=== PATIENT | female | born 1995 | race Caucasian/White ===

== ENCOUNTER 2016-07-12 12:37 | Inpatient (IN) ==
--- NOTE | 2016-07-12 12:42 | Emergency Department Note ---
Disposition Clinical Impression: Suicidal ideation Disposition: Transfer Psychiatric Hosp Condition: Good Referrals: NO,PCP [Primary Care Provider] - General Adult HPI - General Stated complaint: SI Time Seen by Provider: 07/12/16 12:40 - Related Data Allergies Allergy/AdvReac Type Severity Reaction Status Date / Time No Known Allergies Allergy Verified 07/12/16 12:45 Course Vital Signs Temperature 97.6 F 07/12/16 12:39 Pulse Rate 120 07/12/16 12:39 Respiratory Rate 18 07/12/16 12:39 Blood Pressure 160/110 07/12/16 12:39 O2 Sat by Pulse Oximetry 100 07/12/16 12:39 Temperature 98.4 F 07/12/16 17:41 Pulse Rate 83 07/12/16 19:37 Respiratory Rate 18 07/12/16 20:00 Blood Pressure 117/86 07/12/16 20:00 O2 Sat by Pulse Oximetry 98 07/12/16 19:37 Oxygen Delivery Oxygen Delivery Room Air Medical Decision Making - Lab Data Result diagrams: 07/12/16 12:59 07/12/16 12:59 Lab Results 07/12/16 07/12/16 07/12/16 Range/Units 12:59 12:59 13:10 WBC 10.1 (4.3-11.1) K/mcL RBC 4.47 (3.82-4.97) M/mcL Hgb 13.5 (11.5-15.4) g/dL Hct 40.0 (35.3-44.9) % MCV 89.5 (83.0-100.0) fL MCH 30.2 (28.0-33.3) pg MCHC 33.8 (31.6-35.5) g/dL RDW 12.3 (11.5-14.5) % Plt Count 420 H (140-400) K/mcL MPV 9.1 L (9.4-12.4) fL Immature Gran % 0.3 (0-4) % Seg Neutrophils % 62.9 % Lymphocytes % 29.7 % Monocytes % 5.5 % Eosinophils % 1.2 % Basophils % 0.4 % Neutrophils # 6.4 (1.6-8.9) K/mcL Lymphocytes # 3.0 (0.6-4.6) K/mcL Monocytes # 0.6 (0.0-1.3) K/mcL Eosinophils # 0.1 (0.0-0.6) K/mcL Basophils # 0.0 (0.0-0.2) K/mcL Sodium 137 (136-145) mEq/L Potassium 3.9 (3.5-4.5) mEq/L Chloride 107 (98-109) mEq/L Carbon Dioxide 24 (19-29) mEq/L BUN 10 (7-20) mg/dL Creatinine 0.92 (0.57-1.11) mg/dL Est GFR ( Amer) > 60 (> 60) Est GFR (Non-Af Amer) > 60 (> 60) BUN/Creatinine Ratio 11 (6-26) Glucose 98 (70-99) mg/dL Calculated Osmolality 283 (280-300) Calcium 9.9 (8.6-10.8) mg/dL Total Bilirubin 0.5 (0.2-1.2) mg/dL AST 14 (5-34) Units/L ALT 25 (0-55) Units/L Alkaline Phosphatase 66 (38-126) Units/L Serum Total Protein 7.7 (6.0-8.3) g/dL Albumin 4.2 (3.5-5.0) g/dL Globulin 3.5 (2.4-3.5) g/dL Albumin/Globulin Ratio 1.2 (1.1-2.2) TSH 1.769 (0.350-4.840) mcIU/mL Urine Test Negative (Negative) Salicylates < 5.0 L (15-30) mg/dL Urine Opiates Screen (Pzyjgo=462) ng/mL Acetaminophen < 1.0 L (10-30) mcg/mL Ur Barbiturates Screen (Gnwlqg=510) ng/mL Ur Phencyclidine Scrn (Cutoff=25) ng/mL Ur Amphetamines Screen (Fwqobo=0250) ng/mL U Benzodiazepines Scrn (Oxovlf=297) ng/mL Urine Cocaine Screen (Cutoff= 300) ng/mL U Marijuana (THC) Screen (Cutoff = 50) ng/mL Ethyl Alcohol < 10 (0-10) mg/dL 07/12/16 Range/Units 13:10 WBC (4.3-11.1) K/mcL RBC (3.82-4.97) M/mcL Hgb (11.5-15.4) g/dL Hct (35.3-44.9) % MCV (83.0-100.0) fL MCH (28.0-33.3) pg MCHC (31.6-35.5) g/dL RDW (11.5-14.5) % Plt Count (140-400) K/mcL MPV (9.4-12.4) fL Immature Gran % (0-4) % Seg Neutrophils % % Lymphocytes % % Monocytes % % Eosinophils % % Basophils % % Neutrophils # (1.6-8.9) K/mcL Lymphocytes # (0.6-4.6) K/mcL Monocytes # (0.0-1.3) K/mcL Eosinophils # (0.0-0.6) K/mcL Basophils # (0.0-0.2) K/mcL Sodium (136-145) mEq/L Potassium (3.5-4.5) mEq/L Chloride (98-109) mEq/L Carbon Dioxide (19-29) mEq/L BUN (7-20) mg/dL Creatinine (0.57-1.11) mg/dL Est GFR ( Amer) (> 60) Est GFR (Non-Af Amer) (> 60) BUN/Creatinine Ratio (6-26) Glucose (70-99) mg/dL Calculated Osmolality (280-300) Calcium (8.6-10.8) mg/dL Total Bilirubin (0.2-1.2) mg/dL AST (5-34) Units/L ALT (0-55) Units/L Alkaline Phosphatase (38-126) Units/L Serum Total Protein (6.0-8.3) g/dL Albumin (3.5-5.0) g/dL Globulin (2.4-3.5) g/dL Albumin/Globulin Ratio (1.1-2.2) TSH (0.350-4.840) mcIU/mL Urine Test (Negative) Salicylates (15-30) mg/dL Urine Opiates Screen Negative (Plyilc=453) ng/mL Acetaminophen (10-30) mcg/mL Ur Barbiturates Screen Negative (Ffeavc=713) ng/mL Ur Phencyclidine Scrn Negative (Cutoff=25) ng/mL Ur Amphetamines Screen Negative (Aqylfq=9777) ng/mL U Benzodiazepines Scrn Negative (Ccbnyz=051) ng/mL Urine Cocaine Screen Negative (Cutoff= 300) ng/mL U Marijuana (THC) Screen Positive H (Cutoff = 50) ng/mL Ethyl Alcohol (0-10) mg/dL Attestation Statement - Attestation Attestation: I examined this patient and my medical decision-making was reviewed with the HIGH SCHO[employer] SPECIAL EDUCATION TEACHER/PA/Advanced Practice Nurse/Resident Physician. I agree with the documented findings, disposition and treatment plan as described except to the extent set forth below. Face skee-qo-jgua time provided Patient appears in no acute distress on exam. She complains of suicidal ideation. We will attempt to clear her medically for behavioral evaluation 20:04: 1A accepts admission
--- NOTE | 2016-07-12 12:52 | Emergency Department Note ---
Disposition Clinical Impression: Suicidal ideation Disposition: Transfer Psychiatric Hosp Condition: Good Referrals: NO,PCP [Primary Care Provider] - Time of Disposition: 18:28 Psych HPI - General Chief Complaint: ED Psychiatric Symptoms Stated Complaint: SI Time Seen by Provider: 07/12/16 12:40 Source: patient Mode of arrival: ambulatory Limitations: no limitations Nursing Notes Reviewed: Yes Vital Signs Reviewed: Yes - History of Present Illness HPI Narrative: 20 year old female with HX of depression and recently ran out of her medications has been experiencing increased suidical thoughts. She states that yesterday she cut herself with a knife and today while she was at work she was cutting tomatoes and thought about cutting herself again. Patient states that she called her friend and was brought over to ED for SI evaluations. She states no previous admissions for pysch reasons and has not had an attempt although has specific plans. - Related Data Allergies Allergy/AdvReac Type Severity Reaction Status Date / Time No Known Allergies Allergy Verified 07/12/16 12:45 Constitutional: Denies: fever, chills, weakness, weight change Cardiovascular: Denies: chest pain, palpitations, dyspnea on exertion, edema, syncope Respiratory: Denies: cough, dyspnea, wheezes, hemoptysis Gastrointestinal: Denies: abdominal pain, nausea, vomiting, diarrhea, constipation Musculoskeletal: Denies: back pain, neck pain, arthralgia, myalgia Psychiatric: Reports: depression, suicidal thoughts. Denies: anxiety, homicidal thoughts, auditory hallucinations, visual hallucinations Past Medical History - Past Medical History Medical history: Reports: asthma - Social History Smoking Status: Current every day smoker Smokeless Tobacco Status: No Alcohol use: Reports: occasionally Drug use: Reports: marijuana Physical Exam - General Limitations: no limitations General appearance: alert - Head Head exam: atraumatic, normocephalic, normal inspection - Eye Eye exam: Present: normal appearance, PERRL, EOMI - Expanded Eye Exam Pupils: Left: reactive - ENT ENT exam: normal exam, normal oropharynx, mucous membranes moist - Expanded ENT Exam External ear exam: Present: normal external inspection Mouth exam: Present: normal external inspection Teeth exam: Present: normal inspection Throat exam: Present: normal inspection - Neck Neck exam: Present: normal inspection, full ROM, trachea midline - Chest Chest inspection: Present: normal inspection, symmetric chest wall rise - Respiratory Respiratory exam: Present: normal lung sounds bilaterally - Cardiovascular Cardiovascular exam: Present: regular rate, normal rhythm, normal heart sounds - Abdominal Exam Abdominal exam: Present: soft, Non-Tender. Absent: tenderness, distention, guarding, rebound, rigidity - Extremities Exam Extremities exam: Present: normal inspection, full ROM. Absent: tenderness, pedal edema - Expanded Upper Extremity Exam Shoulder exam: Present: normal inspection, full ROM Arm exam: Present: normal inspection, full ROM Elbow exam: Present: normal inspection, full ROM Forearm/Wrist exam: Present: normal inspection, full ROM Hand exam: Present: normal inspection, full ROM Vascular exam: Normal: capillary refill, radial pulse - Expanded Lower Extremity Exam Hip/Pelvis exam: Present: normal inspection, full ROM Upper leg exam: Present: normal inspection, full ROM Knee exam: Present: normal inspection, full ROM Lower leg exam: Present: normal inspection, full ROM Ankle exam: Present: normal inspection, full ROM Foot/toe exam: Present: normal inspection, full ROM Neurovascular/Tendon exam: Absent: motor deficit, sensory deficit, tendon deficit - Back Exam Back exam: Present: normal inspection, full ROM. Absent: tenderness - Neurological Exam Neurological exam: Present: alert, oriented X3 - Expanded Neurological Exam Patient oriented to: Present: person, place, time Coma Scale Eye Opening: Spontaneous Coma Scale Motor Response: Obeys Commands Coma Scale Verbal Response: Oriented Coma Scale Total: 15 - Psychiatric Psychiatric exam: Present: depressed, flat affect, suicidal ideation - Skin Skin exam: Present: warm, dry, intact, normal color Course Course Narrative: we will do a medical clearance and consult 1A - Reevaluation(s) Reevaluation #1: patinet is medically cleared. 1A consulted. Time: 13:34 Reevaluation #2: 1A accepted patinet and willl place outside of our facility. Time: 18:27 Vital Signs Temperature 97.6 F 07/12/16 12:39 Pulse Rate 120 07/12/16 12:39 Respiratory Rate 18 07/12/16 12:39 Blood Pressure 160/110 07/12/16 12:39 O2 Sat by Pulse Oximetry 100 07/12/16 12:39 Temperature 98.4 F 07/12/16 17:41 Pulse Rate 78 07/12/16 17:41 Respiratory Rate 16 07/12/16 17:41 Blood Pressure 105/67 07/12/16 17:41 O2 Sat by Pulse Oximetry 97 07/12/16 17:41 Psych - Lab Data Result diagrams: 07/12/16 12:59 07/12/16 12:59 Lab Results 07/12/16 07/12/16 07/12/16 Range/Units 12:59 12:59 13:10 WBC 10.1 (4.3-11.1) K/mcL RBC 4.47 (3.82-4.97) M/mcL Hgb 13.5 (11.5-15.4) g/dL Hct 40.0 (35.3-44.9) % MCV 89.5 (83.0-100.0) fL MCH 30.2 (28.0-33.3) pg MCHC 33.8 (31.6-35.5) g/dL RDW 12.3 (11.5-14.5) % Plt Count 420 H (140-400) K/mcL MPV 9.1 L (9.4-12.4) fL Immature Gran % 0.3 (0-4) % Seg Neutrophils % 62.9 % Lymphocytes % 29.7 % Monocytes % 5.5 % Eosinophils % 1.2 % Basophils % 0.4 % Neutrophils # 6.4 (1.6-8.9) K/mcL Lymphocytes # 3.0 (0.6-4.6) K/mcL Monocytes # 0.6 (0.0-1.3) K/mcL Eosinophils # 0.1 (0.0-0.6) K/mcL Basophils # 0.0 (0.0-0.2) K/mcL Sodium 137 (136-145) mEq/L Potassium 3.9 (3.5-4.5) mEq/L Chloride 107 (98-109) mEq/L Carbon Dioxide 24 (19-29) mEq/L BUN 10 (7-20) mg/dL Creatinine 0.92 (0.57-1.11) mg/dL Est GFR ( Amer) > 60 (> 60) Est GFR (Non-Af Amer) > 60 (> 60) BUN/Creatinine Ratio 11 (6-26) Glucose 98 (70-99) mg/dL Calculated Osmolality 283 (280-300) Calcium 9.9 (8.6-10.8) mg/dL Total Bilirubin 0.5 (0.2-1.2) mg/dL AST 14 (5-34) Units/L ALT 25 (0-55) Units/L Alkaline Phosphatase 66 (38-126) Units/L Serum Total Protein 7.7 (6.0-8.3) g/dL Albumin 4.2 (3.5-5.0) g/dL Globulin 3.5 (2.4-3.5) g/dL Albumin/Globulin Ratio 1.2 (1.1-2.2) TSH 1.769 (0.350-4.840) mcIU/mL Urine Test Negative (Negative) Salicylates < 5.0 L (15-30) mg/dL Urine Opiates Screen (Pdcmsq=982) ng/mL Acetaminophen < 1.0 L (10-30) mcg/mL Ur Barbiturates Screen (Qffqap=408) ng/mL Ur Phencyclidine Scrn (Cutoff=25) ng/mL Ur Amphetamines Screen (Zaipce=1212) ng/mL U Benzodiazepines Scrn (Ylotrq=970) ng/mL Urine Cocaine Screen (Cutoff= 300) ng/mL U Marijuana (THC) Screen (Cutoff = 50) ng/mL Ethyl Alcohol < 10 (0-10) mg/dL 07/12/16 Range/Units 13:10 WBC (4.3-11.1) K/mcL RBC (3.82-4.97) M/mcL Hgb (11.5-15.4) g/dL Hct (35.3-44.9) % MCV (83.0-100.0) fL MCH (28.0-33.3) pg MCHC (31.6-35.5) g/dL RDW (11.5-14.5) % Plt Count (140-400) K/mcL MPV (9.4-12.4) fL Immature Gran % (0-4) % Seg Neutrophils % % Lymphocytes % % Monocytes % % Eosinophils % % Basophils % % Neutrophils # (1.6-8.9) K/mcL Lymphocytes # (0.6-4.6) K/mcL Monocytes # (0.0-1.3) K/mcL Eosinophils # (0.0-0.6) K/mcL Basophils # (0.0-0.2) K/mcL Sodium (136-145) mEq/L Potassium (3.5-4.5) mEq/L Chloride (98-109) mEq/L Carbon Dioxide (19-29) mEq/L BUN (7-20) mg/dL Creatinine (0.57-1.11) mg/dL Est GFR ( Amer) (> 60) Est GFR (Non-Af Amer) (> 60) BUN/Creatinine Ratio (6-26) Glucose (70-99) mg/dL Calculated Osmolality (280-300) Calcium (8.6-10.8) mg/dL Total Bilirubin (0.2-1.2) mg/dL AST (5-34) Units/L ALT (0-55) Units/L Alkaline Phosphatase (38-126) Units/L Serum Total Protein (6.0-8.3) g/dL Albumin (3.5-5.0) g/dL Globulin (2.4-3.5) g/dL Albumin/Globulin Ratio (1.1-2.2) TSH (0.350-4.840) mcIU/mL Urine Test (Negative) Salicylates (15-30) mg/dL Urine Opiates Screen Negative (Kyehdr=959) ng/mL Acetaminophen (10-30) mcg/mL Ur Barbiturates Screen Negative (Uksdyt=178) ng/mL Ur Phencyclidine Scrn Negative (Cutoff=25) ng/mL Ur Amphetamines Screen Negative (Xlcsur=8932) ng/mL U Benzodiazepines Scrn Negative (Kocyqb=845) ng/mL Urine Cocaine Screen Negative (Cutoff= 300) ng/mL U Marijuana (THC) Screen Positive H (Cutoff = 50) ng/mL Ethyl Alcohol (0-10) mg/dL Psychiatric Medical Clearance - Medical Clearance Checklist Medical History: No Social History Section defined Current Vitals: Last Vital Signs Temp 98.4 F 07/12/16 17:41 Pulse 78 07/12/16 17:41 Resp 16 07/12/16 17:41 BP 105/67 07/12/16 17:41 Pulse Ox 97 07/12/16 17:41 Psychiatric Lab Panel: Drug Levels and Toxicity 07/12/16 07/12/16 12:59 13:10 Urine Opiates Screen Negative Acetaminophen < 1.0 L Ur Barbiturates Screen Negative Ur Phencyclidine Scrn Negative Ur Amphetamines Screen Negative U Benzodiazepines Scrn Negative Urine Cocaine Screen Negative U Marijuana (THC) Screen Positive H Ethyl Alcohol < 10 Abnormal Labs: Abnormal lab results Plt Count 420 K/mcL (140-400) H 07/12/16 12:59 MPV 9.1 fL (9.4-12.4) L 07/12/16 12:59 Salicylates < 5.0 mg/dL (15-30) L 07/12/16 12:59 Acetaminophen < 1.0 mcg/mL (10-30) L 07/12/16 12:59 U Marijuana (THC) Screen Positive ng/mL (Cutoff = 50) H 07/12/16 13:10 Statement of Medical Clearance: I have evaluated the patient, reviewed diagnostic information, and certify that the patient's medical condition is sufficiently stable that transfer to the psychiatric unit does not pose a significant risk of deterioration.
[2016-07-12 13:06] LABS: Basophils % 0.4 %; Eosinophils # 0.1 K/mcL (0.0-0.6); Eosinophils % 1.2 %; Hemoglobin 13.5 g/dL (11.5-15.4); Immature Granulocytes % 0.3 % (0-4); Lymphocytes % 29.7 %; Mean Corpuscular HGB Conc 33.8 g/dL (31.6-35.5); Mean Corpuscular Hemoglobin 30.2 pg (28.0-33.3); Mean Corpuscular Volume 89.5 fL (83.0-100.0); Mean Platelet Volume 9.1 fL (9.4-12.4); Monocytes # 0.6 K/mcL (0.0-1.3); Monocytes % 5.5 %; Neutrophils # 6.4 K/mcL (1.6-8.9); Platelet Count 420 K/mcL (140-400); Red Blood Count 4.47 M/mcL (3.82-4.97); Red Cell Distribution Width 12.3 % (11.5-14.5); Segmented Neutrophils % 62.9 %
[2016-07-12 13:20] LABS: Alanine Aminotransferase 25 Units/L (0-55); Albumin 4.2 g/dL (3.5-5.0); Albumin/Globulin Ratio 1.2 (1.1-2.2); Alkaline Phosphatase 66 Units/L (38-126); Aspartate Amino Transferase 14 Units/L (5-34); BUN/Creatinine Ratio 11 (6-26); Bilirubin,Total 0.5 mg/dL (0.2-1.2); Blood Urea Nitrogen 10 mg/dL (7-20); Calcium 9.9 mg/dL (8.6-10.8); Carbon Dioxide 24 mEq/L (19-29); Chloride 107 mEq/L (98-109); Globulin 3.5 g/dL (2.4-3.5); Glucose 98 mg/dL (70-99); Osmolality,Calculated 283 (280-300); Potassium 3.9 mEq/L (3.5-4.5); Sodium 137 mEq/L (136-145); Total Protein 7.7 g/dL (6.0-8.3); eGFR For African Americans > 60 (> 60); eGFR For Non-African Americans > 60 (> 60)
[2016-07-12 13:24] LABS: Acetaminophen < 1.0 mcg/mL (10-30); Ethanol < 10 mg/dL (0-10); Salicylate < 5.0 mg/dL (15-30)
[2016-07-12 13:27] LABS: Amphetamine Screen,Urine Negative ng/mL (Cutoff=1000); Barbiturate Screen,Urine Negative ng/mL (Cutoff=200); Benzodiazepines Screen,Urine Negative ng/mL (Cutoff=200); Cannabinoid Screen,Urine Positive ng/mL (Cutoff = 50); Cocaine Screen,Urine Negative ng/mL (Cutoff= 300); Opiate Screen,Urine Negative ng/mL (Cutoff=300); Phencyclidine Screen,Urine Negative ng/mL (Cutoff=25)
[2016-07-12 13:41] LABS: Thyroid Stimulating Hormone 1.769 mcIU/mL (0.350-4.840)
[2016-07-12] MEDS ORDERED: Ibuprofen 800 MG TABLET PO ONE (17:38)
[2016-07-12] MEDS ORDERED: Mag Hydrox/Al Hydrox/Simeth 30 ML UDC PO PRN (22:16)
[2016-07-12] MEDS ORDERED: *HR* LORazepam 2 MG/ML VIAL IM PRN (22:16)
[2016-07-12] MEDS ORDERED: *HR* LORazepam 1 MG TABLET PO PRN (22:16)
[2016-07-12] MEDS ORDERED: MOM Conc 10 ML UD.LIQ PO PRN (22:16)
[2016-07-12] MEDS ORDERED: Haloperidol Lactate 5 MG/ML VIAL IM PRN (22:16)
[2016-07-12] MEDS ORDERED: hydrOXYzine pamoate 25 MG CAPSULE PO PRN (22:16)
[2016-07-12] MEDS: Nicotine 2 MG GUM BC PRN (23:10)
[2016-07-12] MEDS: traZODone 50 MG TABLET PO PRN (23:10)
--- NOTE | 2016-07-13 10:11 | Psychiatry History & Physical ---
Date of Encounter: 07/13/16 Time of Encounter: 10:08 History of Present Illness Patient Stated Chief Complaint: Suicidal Medicare Admission Attestation: For traditional Medicare patients the provided hospital inpatient services are reasonable and necessary and in the case of services not specified as inpatient -only under 42 CFR 419.22 (n), that they are appropriately provided as inpatient services in accordance 42 CFR 412.3. For Critical Access Hospital the patient may reasonably be expected to be discharged or transferred to a hospital within 96 hours after admission to the Critical Access Hospital. Admitted From: Emergency Dept History of Present Illness: Ms. Awan is a 20 year old female admitted from the emergency department where she presented with suicidal ideation and attempts by cutting her wrist. Patient had a breakup with her boyfriend and felt hopeless and helpless and suicidal and on the advice of friends she came to the hospital. Patient had no previous psychiatric hospitalization. She was given antidepressant several months ago by a family doctor where she was having some family conflicts. Patient moved to [place] from [place] to live with her mother and she works part-time at a local restaurant. She had high school diploma. She smokes one pack cigarettes a day, several cans of Mountain Dew and smoke marijuana daily. She decided not to drink alcohol for the past several weeks and she believes her mother is alcohol dependent. Patient reports poor sleep, and anxiety and suicidal thoughts and crying episodes. Past Med Surg Social Fam HX - Past Medical History Medical history: asthma - Past Psychiatric History Psychiatric history: Reports: no psych history Family psychiatric history: Unknown Family History of Suicide: Unknown - Social History Smoking Status: Current every day smoker Smokeless Tobacco Status: No Alcohol use: occasionally Drug use: marijuana - Family History Mother Hx Family Psychosocial Disorders: Yes (depression) Father Hx Family Psychosocial Disorders: Yes (biolar depression) Medications & Allergies Acetaminophen/Pyrilam/Pamabrom [Pms Multi Symptom Caplet] 1 tab PO Q12H PRN [History] Albuterol Sulfate [Proair Hfa] 2 puff IH Q4H PRN 07/13/16 [History] Etonogestrel [Nexplanon] 68 mg SQ AD 07/13/16 [History] Ibuprofen [Motrin] 600 mg PO Q6HR PRN 07/13/16 [History] Allergies nicotine [From Nicoderm CQ] Allergy (Verified 07/13/16 08:01) Hives the patch breaks her out Review of Systems Psychiatric: Reports: depression, abnormal sleep pattern, suicidal ideation, hopelessness Mental Status Exam Patient orientation: Yes Person, Yes Time, Yes Place Level of alertness: Alert Patient appearance: Appropriate, Well Groomed, Obese Behavior: calm, cooperative Psychomotor activity: Normal Eye contact: Maintains Eye Contact Mood description: Depressed, Anxious Affect description: congruent with mood, constricted Speech pattern: Normal rate, Normal rhythm, Normal tone Speech volume: Normal Thought process: Linear, Goal Oriented Thought content: Yes Suicidal ideation, No Homicidal ideation, No Overt delusions Perceptual disturbances: No Auditory hallucinations, No Visual hallucinations Attention span: Capable of Focused Attention Memory description: Grossly Intact Patient reliability: Reliable Historian Intelligence estimate: Average Judgment: Limited Insight: Partial Results - Vital Signs Vital signs: Temp Pulse Resp BP Pulse Ox 97.6 F 94 16 119/77 98 07/13/16 09:00 07/13/16 09:00 07/13/16 09:00 07/13/16 09:00 07/12/16 19:37 - Labs Labs: Laboratory Last Values WBC 10.1 K/mcL (4.3-11.1) 07/12/16 12:59 RBC 4.47 M/mcL (3.82-4.97) 07/12/16 12:59 Hgb 13.5 g/dL (11.5-15.4) 07/12/16 12:59 Hct 40.0 % (35.3-44.9) 07/12/16 12:59 MCV 89.5 fL (83.0-100.0) 07/12/16 12:59 MCH 30.2 pg (28.0-33.3) 07/12/16 12:59 MCHC 33.8 g/dL (31.6-35.5) 07/12/16 12:59 RDW 12.3 % (11.5-14.5) 07/12/16 12:59 Plt Count 420 K/mcL (140-400) H 07/12/16 12:59 MPV 9.1 fL (9.4-12.4) L 07/12/16 12:59 Immature Gran % 0.3 % (0-4) 07/12/16 12:59 Seg Neutrophils % 62.9 % 07/12/16 12:59 Lymphocytes % 29.7 % 07/12/16 12:59 Monocytes % 5.5 % 07/12/16 12:59 Eosinophils % 1.2 % 07/12/16 12:59 Basophils % 0.4 % 07/12/16 12:59 Neutrophils # 6.4 K/mcL (1.6-8.9) 07/12/16 12:59 Lymphocytes # 3.0 K/mcL (0.6-4.6) 07/12/16 12:59 Monocytes # 0.6 K/mcL (0.0-1.3) 07/12/16 12:59 Eosinophils # 0.1 K/mcL (0.0-0.6) 07/12/16 12:59 Basophils # 0.0 K/mcL (0.0-0.2) 07/12/16 12:59 Sodium 137 mEq/L (136-145) 07/12/16 12:59 Potassium 3.9 mEq/L (3.5-4.5) 07/12/16 12:59 Chloride 107 mEq/L (98-109) 07/12/16 12:59 Carbon Dioxide 24 mEq/L (19-29) 07/12/16 12:59 BUN 10 mg/dL (7-20) 07/12/16 12:59 Creatinine 0.92 mg/dL (0.57-1.11) 07/12/16 12:59 Est GFR ( Amer) > 60 (> 60) 07/12/16 12:59 Est GFR (Non-Af Amer) > 60 (> 60) 07/12/16 12:59 BUN/Creatinine Ratio 11 (6-26) 07/12/16 12:59 Glucose 98 mg/dL (70-99) 07/12/16 12:59 Calculated Osmolality 283 (280-300) 07/12/16 12:59 Calcium 9.9 mg/dL (8.6-10.8) 07/12/16 12:59 Total Bilirubin 0.5 mg/dL (0.2-1.2) 07/12/16 12:59 AST 14 Units/L (5-34) 07/12/16 12:59 ALT 25 Units/L (0-55) 07/12/16 12:59 Alkaline Phosphatase 66 Units/L (38-126) 07/12/16 12:59 Serum Total Protein 7.7 g/dL (6.0-8.3) 07/12/16 12:59 Albumin 4.2 g/dL (3.5-5.0) 07/12/16 12:59 Globulin 3.5 g/dL (2.4-3.5) 07/12/16 12:59 Albumin/Globulin Ratio 1.2 (1.1-2.2) 07/12/16 12:59 TSH 1.769 mcIU/mL (0.350-4.840) 07/12/16 12:59 Urine Test Negative (Negative) 07/12/16 13:10 Salicylates < 5.0 mg/dL (15-30) L 07/12/16 12:59 Urine Opiates Screen Negative ng/mL (Jglaov=921) 07/12/16 13:10 Acetaminophen < 1.0 mcg/mL (10-30) L 07/12/16 12:59 Ur Barbiturates Screen Negative ng/mL (Ycmpte=665) 07/12/16 13:10 Ur Phencyclidine Scrn Negative ng/mL (Cutoff=25) 07/12/16 13:10 Ur Amphetamines Screen Negative ng/mL (Ximsmh=5048) 07/12/16 13:10 U Benzodiazepines Scrn Negative ng/mL (Yekhfy=637) 07/12/16 13:10 Urine Cocaine Screen Negative ng/mL (Cutoff= 300) 07/12/16 13:10 U Marijuana (THC) Screen Positive ng/mL (Cutoff = 50) H 07/12/16 13:10 Ethyl Alcohol < 10 mg/dL (0-10) 07/12/16 12:59 Assessment and Plan (1) Suicidal ideation Current visit: Yes Status: Acute Plan: Admit inpatient for safety and stabilization, Close observation, Suicide Precautions per unit protocol, Encourage participation in unit milieu, Group Therapy, Monitor sleep, Monitor appetite Additional Plan: We will start patient on Paxil 20 mg daily. Patient had good response to Paxil in the past, benefits and side effects were discussed and she is agreeable to start and will monitor Risks, benefits, side effects, alternatives discussed w/pt: Yes Patient agreeable to treatment: Yes (2) Tetrahydrocannabinol (THC) use disorder, moderate, dependence Current visit: Yes Status: Acute (3) Tetrahydrocannabinol (THC) use disorder, moderate, dependence Current visit: Yes Status: Acute Plan: Admit inpatient for safety and stabilization, Close observation, Suicide Precautions per unit protocol, Encourage participation in unit milieu, Group Therapy, Monitor sleep, Monitor appetite Risks, benefits, side effects, alternatives discussed w/pt: Yes Patient agreeable to treatment: Yes
[2016-07-13] MEDS: Nicotine 2 MG GUM BC PRN ×3 (10:34→20:05)
[2016-07-13] MEDS: Acetaminophen 325 MG TABLET PO PRN ×2 (11:18→17:20)
[2016-07-13] MEDS: Ibuprofen 400 MG TABLET PO PRN (21:41)
[2016-07-13] MEDS: traZODone 50 MG TABLET PO PRN (22:40)
[2016-07-14] MEDS: Nicotine 2 MG GUM BC PRN ×3 (09:37→18:09)
[2016-07-14] MEDS: Ibuprofen 400 MG TABLET PO PRN ×2 (10:26→18:53)
--- NOTE | 2016-07-14 14:24 | Psychiatry Progress Note ---
Date of Encounter: 07/14/16 Time of Encounter: 14:00 Subjective Interval history: Patient is here for follow-up. She was started on Paxil yesterday, she reports no side effects and improved sleep. She is feeling better and more positive. She participated in group activities and denied any suicidal ideation. She is interested in therapy to improve her self-esteem. She has future plans to go to school and to be independent. Review of Systems Psychiatric: Reports: depression, abnormal sleep pattern, suicidal ideation, hopelessness Objective: Exam Patient orientation: Yes Person, Yes Time, Yes Place Level of alertness: Alert Patient appearance: Appropriate, Well Groomed Behavior: calm, cooperative Psychomotor activity: Normal Eye contact: Maintains Eye Contact Mood description: Euthymic/stable Affect description: congruent with mood, full range Speech pattern: Normal rate, Normal rhythm, Normal tone Speech volume: Normal Thought process: Linear, Goal Oriented Thought content: No Suicidal ideation, No Homicidal ideation, No Overt delusions Perceptual disturbances: No Auditory hallucinations, No Visual hallucinations Judgment: Fair Insight: Partial Results - Vital Signs Vital Signs: Temp Pulse Resp BP Pulse Ox 97.1 F L 77 18 144/77 98 07/14/16 09:00 07/14/16 09:00 07/14/16 09:00 07/14/16 09:00 07/12/16 19:37 Assessment and Plan (1) Suicidal ideation Current visit: Yes Status: Acute Risks, benefits, side effects, alternatives discussed w/pt: Yes Patient agreeable to treatment: Yes (2) Tetrahydrocannabinol (THC) use disorder, moderate, dependence Current visit: Yes Status: Acute Consult Discharge Plan - Plan Referrals: [facility] [Outside] - 07/19/16 10:30 am (The above appointment is with Zayda counselor. You will also see Melony Celaya on 03/2016 at 8:45AM. Please arrive 15 minutes early to complete paperwork. Please bring your insurance card, photo ID and medications in their original bottles. If you do not have insurance, bring proof of income to apply for the sliding fee scale. If you are unable to keep this appointment, 24 hour business notice of cancellation is expected. )
[2016-07-14] MEDS: traZODone 50 MG TABLET PO PRN (21:06)
[2016-07-15] MEDS: Ibuprofen 400 MG TABLET PO PRN (08:29)
[2016-07-15 09:19] VITALS: BP 115/66
--- NOTE | 2016-07-15 12:21 | Discharge Summary ---
Date of Encounter: 07/15/16 Time of Encounter: 12:24 Diagnosis - Discharge Diagnosis (1) Suicidal ideation Status: Acute (2) Tetrahydrocannabinol (THC) use disorder, moderate, dependence Status: Acute Medications - Discharge Medications Prescriptions: Paroxetine [Paxil] 20 mg PO DAILY #30 tablet Acetaminophen/Pyrilam/Pamabrom [Pms Multi Symptom Caplet] 1 tab PO Q12H PRN [History] Albuterol Sulfate [Proair Hfa] 2 puff IH Q4H PRN 07/13/16 [History] Etonogestrel [Nexplanon] 68 mg SQ AD 07/13/16 [History] Ibuprofen [Motrin] 600 mg PO Q6HR PRN 07/13/16 [History] Paroxetine [Paxil] 20 mg PO DAILY #30 tablet 07/15/16 [Rx] Allergies nicotine [From Nicoderm CQ] Allergy (Verified 07/13/16 08:01) Hives the patch breaks her out Provider Date of admission: 07/12/16 20:17 Primary care physician: PCP NO Discharging clinician: Raymond Dean Assessment and Plan - Patient/Caregiver Discharge Instructions Activity: resume usual activities as tolerated Diet: regular diet - Follow up Plan Follow up with: [facility] [Outside] - 07/19/16 10:30 am (The above appointment is with counselor Zayda. You will also see Melony Celaya on 03/2016 at 8:45AM. Please arrive 15 minutes early to complete paperwork. Please bring your insurance card, photo ID and medications in their original bottles. If you do not have insurance, bring proof of income to apply for the sliding fee scale. If you are unable to keep this appointment, 24 hour business notice of cancellation is expected. ) Functional capacity at discharge: independent ambulation Overall status at discharge: Stable Disposition: Home, Self-Care Hospital Course Hospital course: Ms. Awan is a 20 year old female admitted from the emergency room for evaluation of suicidal ideation after a breakup with boyfriend. For details of admission please see H&P On the units patient was started on Paxil 20 mg daily, she tolerated the medication and reported improved sleep and mood. She participated in activities and groups. She interacted appropriately with peers and staff. She denied any suicidal ideation and demonstrated improved insight and she was future oriented and having plans regarding her work and living situation. His discharge plan and follow-up was completed by the healthcare social worker. - Time Spent with Patient Total time spent providing and/or coordinating discharge services: Less than 30 minutes Quality - Multiple Antipsychotics Patient discharged on 2 or more antipsychotic medications: No Procedures - Procedures Procedures: Medication Management, Crisis Stabilization, Supportive Therapy, Group Therapy, Psychoeducational Therapy Mental Status Exam - Mental Status Exam Patient orientation: Yes Person, Yes Time, Yes Place Level of alertness: Alert Patient appearance: Appropriate, Well Groomed, Obese Behavior: calm, cooperative Psychomotor activity: Normal Eye contact: Maintains Eye Contact Mood description: Euthymic/stable Affect description: congruent with mood, full range Speech pattern: Normal rate, Normal rhythm, Normal tone Speech Volume: Normal Thought process: Linear, Goal Oriented Thought Content: No Suicidal ideation, No Homicidal ideation, No Overt delusions Perceptual Disturbances: No Auditory hallucinations, No Visual hallucinations Judgment: Limited Insight: Partial
== END 2016-07-15 15:10 | disposition home or self-care (01) | DRG 384 ==
LOC: EMEROO 12:37 → 1ANU 20:17
PROVIDERS: ADMIT Psychiatry & Neurology Psychiatry; ATTEND Psychiatry & Neurology Psychiatry